=== PATIENT | male | born 1935 | race Hispanic/Latino ===

== ENCOUNTER 2017-05-29 14:33 | Emergency (ER) | payer MEDICARE ==
[2017-05-29 16:17] LABS: BASOPHILS % (AUTO) 0.5 % (0.0-5.0); EOSINOPHILS % (AUTO) 1.1 % (0.0-8.0); HEMATOCRIT 38.3 % (42-54); LYMPHOCYTES % (AUTO) 15.2 % (21.0-51.0); MEAN CORPUSCULAR HEMOGLOBIN 31.7 pg (27.0-33.0); MEAN CORPUSCULAR VOLUME 90.4 fL (79-99); MONOCYTES % (AUTO) 9.2 % (3.0-13.0); PLATELET COUNT (AUTO) 203 K/uL (130-400); RED BLOOD CELL COUNT(AUTO) 4.24 MIL/uL (4.50-6.20); RED CELL DISTRIBUTION WIDTH 13.8 % (11.0-15.5); WHITE BLOOD COUNT (AUTO) 7.3 K/uL (4.8-10.8)
[2017-05-29 16:25] LABS: CREATININE 0.7 mg/dL (0.5-1.5); POTASSIUM 4.4 mmol/L (3.5-5.1)
[2017-05-29 16:32] LABS: ALBUMIN 3.3 g/dL (3.5-5.0); BILIRUBIN,TOTAL 0.4 mg/dL (0.2-1.0)
[2017-05-29 16:46] LABS: CRP QUANTITATIVE 33.7 mg/L (0.00-9.0); TOTAL PROTEIN, SERUM 7.4 g/dL (6.0-8.3)
[2017-05-29 17:21] LABS: ERYTHROCYTE SEDIMENTATION RATE 40 MM/HR (0-15)
== END 2017-05-29 17:54 | disposition home or self-care (01) ==
LOC: EDH 14:33
DX: L03.115 Cellulitis of right lower limb (principal); I10 Essential (primary) hypertension; E78.5 Hyperlipidemia, unspecified; Z98.890 Other specified postprocedural states; Z87.891 Personal history of nicotine dependence; M79.661 Pain in right lower leg
CPT/HCPCS: 36415; 73590; 80053; 85025; 85651; 86141; 93971

== ENCOUNTER 2017-06-26 13:35 | Emergency (ER) | payer MEDICARE ==
[2017-06-26] MEDS ORDERED: SODIUM CHLORIDE 0.9% 1000ML 1,000 ML IV ONE (14:14)
[2017-06-26] MEDS ORDERED: CLINDAMYCIN 600 MG/D5% WATER 50 ML IV ONE (14:15)
[2017-06-26 14:31] LABS: BASOPHILS % (AUTO) 0.3 % (0.0-5.0); EOSINOPHILS % (AUTO) 1.3 % (0.0-8.0); HEMATOCRIT 35.9 % (42-54); LYMPHOCYTES % (AUTO) 14.8 % (21.0-51.0); MEAN CORPUSCULAR HEMOGLOBIN 31.3 pg (27.0-33.0); MEAN CORPUSCULAR HGB CONC 34.7 g/dL (32.0-36.0); MEAN CORPUSCULAR VOLUME 90.3 fL (79-99); NEUTROPHILS % (AUTO) 75.6 % (40.0-77.0); PLATELET COUNT (AUTO) 219 K/uL (130-400); RED BLOOD CELL COUNT(AUTO) 3.98 MIL/uL (4.50-6.20); RED CELL DISTRIBUTION WIDTH 13.4 % (11.0-15.5); WHITE BLOOD COUNT (AUTO) 6.6 K/uL (4.8-10.8)
[2017-06-26 15:02] LABS: CREATININE 0.7 mg/dL (0.5-1.5); POTASSIUM 3.9 mmol/L (3.5-5.1)
== END 2017-06-26 16:23 | disposition home or self-care (01) ==
LOC: EDH 13:35
DX: L03.115 Cellulitis of right lower limb (principal); E78.5 Hyperlipidemia, unspecified; I10 Essential (primary) hypertension; Z87.891 Personal history of nicotine dependence; R22.41 Localized swelling, mass and lump, right lower limb
CPT/HCPCS: 36415; 80048; 85025; 93971; 96365; 99285; J3490; J7030

== ENCOUNTER → 2017-09-04 | Outpatient (CLI) | payer MEDICARE | END | disposition home or self-care (01) | LOC: RAH 14:00 | PROVIDERS: ATTEND Internal Medicine | DX: R09.89 Other specified symptoms and signs involving the circulatory and respiratory systems (principal); I10 Essential (primary) hypertension; E78.5 Hyperlipidemia, unspecified | CPT/HCPCS: 93925 ==

== ENCOUNTER 2018-01-16 15:02 | Emergency (ER) | payer MEDICARE | END 2018-01-16 17:39 | disposition home or self-care (01) | LOC: EDH 15:02 | DX: S43.492A Other sprain of left shoulder joint, initial encounter (principal); S00.12XA Contusion of left eyelid and periocular area, initial encounter; E78.5 Hyperlipidemia, unspecified; I10 Essential (primary) hypertension; W18.39XA Other fall on same level, initial encounter; Y93.01 Activity, walking, marching and hiking; Y92.89 Other specified places as the place of occurrence of the external cause; Y99.8 Other external cause status | CPT/HCPCS: 70450; 73030 ==

== ENCOUNTER → 2019-01-22 | Outpatient (CLI) | payer MEDICARE | END | disposition home or self-care (01) | LOC: SLP 20:32 | PROVIDERS: ATTEND Physical Medicine & Rehabilitation | DX: G47.33 Obstructive sleep apnea (adult) (pediatric) (principal); G47.19 Other hypersomnia; I10 Essential (primary) hypertension | CPT/HCPCS: 95810 ==

== ENCOUNTER → 2019-02-06 | Outpatient (CLI) | payer MEDICARE | END | disposition home or self-care (01) | LOC: SLP 20:33 | PROVIDERS: ATTEND Physical Medicine & Rehabilitation | DX: G47.33 Obstructive sleep apnea (adult) (pediatric) (principal); I10 Essential (primary) hypertension | CPT/HCPCS: 95811 ==

== ENCOUNTER 2021-07-30 14:04 | Emergency (ER) | payer MEDICARE ==
[~2021-07-30] VITALS: Ht 162.6 cm; Wt 63.5 kg
[2021-07-30] MEDS ORDERED: FAMOTIDINE 20MG TAB PO ONE (14:30)
[2021-07-30] MEDS ORDERED: SOLU-MEDROL 125MG VIAL IM ONE (14:30)
[2021-07-30] MEDS ORDERED: DIPHENHYDRAMINE HCL 25 MG CAPSULE PO ONE (14:30)
[2021-07-30] MEDS ORDERED: SOLU-MEDROL 125MG VIAL ONE (14:39)
[2021-07-30] MEDS ORDERED: FAMOTIDINE 20MG TAB ONE (14:39)
[2021-07-30] MEDS ORDERED: DIPHENHYDRAMINE HCL 25 MG CAPSULE ONE (14:40)
[2021-07-30] MEDS ORDERED: CETI1SOL17 PO (15:06)
[2021-07-30] MEDS ORDERED: FAMO-136 PO (15:06)
[2021-07-30] MEDS ORDERED: PRED20TA3 PO (15:06)
[2021-07-30 15:18] VITALS: BP 153/76
== END 2021-07-30 15:22 | disposition home or self-care (01) ==
LOC: EDH 14:04
DX: T78.3XXA Angioneurotic edema, initial encounter (principal); Z79.52 Long term (current) use of systemic steroids
CPT/HCPCS: 96372; 99283; J2930; Q0163

== ENCOUNTER 2021-08-23 09:50 | Emergency (ER) | payer MEDICARE ==
[~2021-08-23] VITALS: Ht 170.2 cm; Wt 81.6 kg
[~2021-08-23 09:50] MED LIST: CETI1SOL17 PO; FAMO-136 PO; PRED20TA3 PO
[2021-08-23 10:29] LABS: BASOPHILS % (AUTO) 0.2 % (0.0-5.0); EOSINOPHILS % (AUTO) 0.5 % (0.0-8.0); HEMATOCRIT 37.6 % (42-54); LYMPHOCYTES % (AUTO) 12.5 % (21.0-51.0); MEAN CORPUSCULAR HEMOGLOBIN 29.5 pg (27.0-33.0); MEAN CORPUSCULAR HGB CONC 32.2 g/dL (32.0-36.0); MEAN CORPUSCULAR VOLUME 91.7 fL (79-99); MONOCYTES % (AUTO) 7.8 % (3.0-13.0); NEUTROPHILS % (AUTO) 78.7 % (40.0-77.0); PLATELET COUNT (AUTO) 196 K/uL (130-400); RED CELL DISTRIBUTION WIDTH 13.2 % (11.0-15.5); WHITE BLOOD COUNT (AUTO) 6.6 K/uL (4.8-10.8)
[2021-08-23 10:42] LABS: CREATININE 0.7 mg/dL (0.5-1.5); POTASSIUM 3.6 mmol/L (3.5-5.1)
[2021-08-23 10:47] LABS: ALBUMIN 3.2 g/dL (3.5-5.0); BILIRUBIN,TOTAL 0.4 mg/dL (0.2-1.0); TOTAL PROTEIN, SERUM 6.9 g/dL (6.0-8.3)
[2021-08-23] MEDS ORDERED: DiphenhydrAMINE HCL 25 MG/10 ML ELIXIR UDCUP PO ONE (13:00)
[2021-08-23] MEDS ORDERED: FAMOTIDINE 20MG TAB PO ONE (13:00)
[2021-08-23] MEDS ORDERED: PENICILLIN V POTASSIUM 500 MG TABLET PO ONE (13:00)
[2021-08-23 13:53] VITALS: BP 130/64
[2021-08-23] MEDS ORDERED: PENI500T2 PO (13:55)
[2021-08-23] MEDS ORDERED: METO-408 PO (13:55)
[2021-08-23] MEDS ORDERED: METO25PO2 PO (13:59)
[2021-08-23] MEDS ORDERED: PRED20TA3 PO (14:07)
== END 2021-08-23 14:53 | disposition home or self-care (01) ==
LOC: EDH 09:50
DX: T78.3XXA Angioneurotic edema, initial encounter (principal); I10 Essential (primary) hypertension; F43.10 Post-traumatic stress disorder, unspecified; Z79.899 Other long term (current) drug therapy
CPT/HCPCS: 36415; 80053; 85025

== ENCOUNTER 2022-03-14 22:47 | Emergency (ER) | payer MEDICARE ==
[~2022-03-14] VITALS: Ht 170.2 cm; Wt 62.1 kg
[~2022-03-14 22:47] MED LIST changes: +METO25PO2 PO; +PENI500T2 PO
[2022-03-14 22:49] VITALS: BP 149/67
[2022-03-15] MEDS ORDERED: DIPHENHYDRAMINE HCL 25 MG CAPSULE PO ONE (01:00)
== END 2022-03-15 01:53 | disposition home or self-care (01) ==
LOC: EDH 22:47
DX: T78.3XXA Angioneurotic edema, initial encounter (principal); K13.0 Diseases of lips; I10 Essential (primary) hypertension; F43.10 Post-traumatic stress disorder, unspecified; Z79.899 Other long term (current) drug therapy
CPT/HCPCS: 99282; Q0163

== ENCOUNTER 2023-10-04 12:28 | Emergency (ER) | payer MEDICARE ==
[~2023-10-04] VITALS: Ht 167.6 cm; Wt 68.0 kg
[2023-10-04] MEDS ORDERED: FAMC500T8 PO (13:38)
[2023-10-04] MEDS ORDERED: ACYC30OI2 TP (13:38)
[2023-10-04 13:44] VITALS: BP 155/76; PULSE 86; RESP 14; O2SAT 97
[2023-10-04] MEDS ORDERED: ACETAMINOPHEN 500 MG TABLET PO ONE (14:00)
== END 2023-10-04 13:47 | disposition home or self-care (01) ==
LOC: EDH 12:28
DX: B02.9 Zoster without complications (principal); I10 Essential (primary) hypertension; E78.00 Pure hypercholesterolemia, unspecified; Z79.899 Other long term (current) drug therapy; Z98.890 Other specified postprocedural states

== ENCOUNTER 2023-10-19 12:58 | Emergency (ER) | payer MEDICARE ==
[~2023-10-19] VITALS: Ht 170.2 cm; Wt 61.7 kg
[~2023-10-19 12:58] MED LIST changes: +ACYC30OI2 TP; +FAMC500T8 PO; +GABA300S3 PO
[2023-10-19 14:12] VITALS: BP 137/80; PULSE 75; RESP 18
[2023-10-19] MEDS ORDERED: GABA-534 PO (14:30)
[2023-10-19] MEDS: ACETAMINOPHEN WITH CODEINE 1 TAB TAB PO ONE (14:41)
== END 2023-10-19 14:57 | disposition home or self-care (01) ==
LOC: EDH 12:58
DX: M79.2 Neuralgia and neuritis, unspecified (principal); E78.00 Pure hypercholesterolemia, unspecified; I10 Essential (primary) hypertension; Z79.52 Long term (current) use of systemic steroids; Z79.624 Long term (current) use of inhibitors of nucleotide synthesis; Z86.19 Personal history of other infectious and parasitic diseases

== ENCOUNTER 2023-11-17 10:02 | Emergency (ER) | payer MEDICARE ==
[~2023-11-17] VITALS: Ht 170.2 cm; Wt 62.6 kg
[~2023-11-17 10:02] MED LIST changes: +GABA-534 PO
[2023-11-17] MEDS ORDERED: KETO10TA2 PO (10:29)
[2023-11-17] MEDS: MORPHINE 2 MG SYG IM ONE (10:36)
[2023-11-17] MEDS: KETOROLAC 15MG/ML VIAL (15MG/ML) IM ONE (10:37)
[2023-11-17 11:08] VITALS: BP 136/78; PULSE 74; RESP 16; O2SAT 97
== END 2023-11-17 11:10 | disposition home or self-care (01) ==
LOC: EDH 10:02
DX: B02.8 Zoster with other complications (principal); B02.29 Other postherpetic nervous system involvement; E78.00 Pure hypercholesterolemia, unspecified; I10 Essential (primary) hypertension; Z79.899 Other long term (current) drug therapy; Z79.2 Long term (current) use of antibiotics
CPT/HCPCS: 99284; 96372 ×2; J2270; J1885

== ENCOUNTER 2024-01-10 13:27 | Emergency (ER) | payer MEDICARE ==
[~2024-01-10] VITALS: Ht 167.6 cm; Wt 62.6 kg
[~2024-01-10 13:27] MED LIST changes: +KETO10TA2 PO
[2024-01-10 14:12] LABS: BASOPHILS # (AUTO) 0.02 K/uL (0.00-0.20); BASOPHILS % (AUTO) 0.3 % (0.0-5.0); EOSINOPHILS # (AUTO) 0.06 K/uL (0.00-0.70); EOSINOPHILS % (AUTO) 0.9 % (0.0-8.0); HEMATOCRIT 36.2 % (42-54); IMMATURE GRANULOCYTE ABSOLUTE 0.02 K/uL (0-1); MEAN CORPUSCULAR HEMOGLOBIN 30.7 pg (27.0-33.0); MEAN CORPUSCULAR HGB CONC 32.9 g/dL (32.0-36.0); MEAN CORPUSCULAR VOLUME 93.5 fL (79-99); MONOCYTES # (AUTO) 0.6 K/uL (0.1-1.0); MONOCYTES % (AUTO) 7.9 % (3.0-13.0); NEUTROPHILS # (AUTO) 5.3 K/uL (1.8-7.7); NEUTROPHILS % (AUTO) 75.6 % (40.0-77.0); PLATELET COUNT (AUTO) 140 K/uL (130-400); RED BLOOD CELL COUNT(AUTO) 3.87 MIL/uL (4.50-6.20); RED CELL DISTRIBUTION WIDTH 13.4 % (11.0-15.5)
[2024-01-10 14:25] LABS: CREATININE 0.7 mg/dL (0.5-1.3); POTASSIUM 4.3 mmol/L (3.5-5.1)
[2024-01-10 14:29] LABS: BILIRUBIN,TOTAL 0.2 mg/dL (0.2-1.0); TOTAL PROTEIN, SERUM 6.2 g/dL (6.0-8.3)
[2024-01-10] MEDS: traMADol HCL 50 MG TABLET PO STA (14:48)
[2024-01-10 16:45] VITALS: BP 138/72; PULSE 62; RESP 18; TEMP 97.7; O2SAT 99
== END 2024-01-10 16:50 | disposition home or self-care (01) ==
LOC: EDH 13:27
DX: R07.89 Other chest pain (principal); Z79.52 Long term (current) use of systemic steroids; Z79.624 Long term (current) use of inhibitors of nucleotide synthesis; Z79.899 Other long term (current) drug therapy; Z86.19 Personal history of other infectious and parasitic diseases
CPT/HCPCS: 36415; 71045; 80053; 84484; 85025; 93005

== ENCOUNTER 2024-09-04 14:37 | Emergency (ER) | payer MEDICARE ==
[~2024-09-04] VITALS: Ht 170.2 cm; Wt 63.5 kg
[~2024-09-04 14:37] MED LIST changes: +FURO40TA5 PO
[2024-09-04] MEDS: HYDROcodone/APAP 5/325 1 TAB TABLET PO STA (15:32)
[2024-09-04] MEDS: LIDOCAINE 4% ADH..PATCH TP STA (15:32)
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
--- NOTE | 2024-09-04 16:26 | EKG ---
[facility] Test Date: 2024-09-04 Test Time: 15:50:11 Pat Name: WALT LOPEZ Department: [facility] Room: Gender: Talcer: [id number] : [id number] Requested By: REBECA WILLETT Order Number: [id number] Reading MD: Samuel Lubin Measurements Intervals [place] Rate: 58 P: 45 VA: 189 QRS: 11 QRSD: 91 T: 59 QT: 433 QTc: 425 Interpretive Statements Sinus rhythm Compared to ECG 03/09/2024 15:33:40 No significant changes Electronically Signed On 09-05-2024 15:51:19 CDT by Samuel Lubin Please click the below link to view image of tracing.
[2024-09-04] MEDS ORDERED: LIDOP TP (16:34)
[2024-09-04 17:00] VITALS: BP 152/66; PULSE 59; RESP 16; TEMP 97.6; O2SAT 99
== END 2024-09-04 17:10 | disposition home or self-care (01) ==
LOC: EDH 14:37
DX: B02.29 Other postherpetic nervous system involvement (principal); I25.10 Atherosclerotic heart disease of native coronary artery without angina pectoris; Z79.52 Long term (current) use of systemic steroids; Z79.624 Long term (current) use of inhibitors of nucleotide synthesis; Z79.899 Other long term (current) drug therapy
CPT/HCPCS: 93005; 99284